=== PATIENT | male | born 1955 | race Caucasian/White ===

== ENCOUNTER 2022-03-17 00:32 | Emergency (ER) | payer MEDICARE, OTHER, SELFPAY ==
--- NOTE | ~2022-03-17 | CT_ITS ---
EXAMINATION: CT abdomen pelvis wo con DATE: 03/17/2022 02:21 INDICATION: Right flank pain. TECHNIQUE: Computed tomography (CT) of the abdomen and pelvis was performed without intravenous contr ast. Automated exposure control and iterative reconstruction technique were employed. The dose-length product was 190.65 mGy-cm. COMPARISON: CT abdomen and pelvis 06/20/2005 FINDINGS: The visualized portions of the lung bases demonstrate mild atelectasis and mild chronic jericho g disease. No pleural effusion. The heart size is normal. No pericardial effusion. There is mild pect us excavatum. The liver and gallbladder are normal. Calcifications in the spleen are consistent with old granulomatous disease. The pancreas and adrenal glands are normal. There are cysts in the kidneys measuring up to 2.8 cm on the left. There is mild right hydronephrosis. There is a 5 mm stone in pro ximal right ureter. There is diverticulosis of the colon without evidence of diverticulitis. There ar e no dilated loops of bowel. The appendix is normal. There is a left inguinal hernia containing fat. There is moderate lumbar spondylosis. There is a benign bone island in L5 vertebral body. IMPRESSION: 1. 5 mm stone in proximal right ureter with mild right hydronephrosis. Reviewed, dictated and finalized at location A.
[2022-03-17 00:33] VITALS: BP 134/70; PULSE 58; RESP 20; TEMP 36.4; O2SAT 98
--- NOTE | 2022-03-17 00:43 | PC.NURSE ---
Pt to ED c/o Right flank pain. Reports hx of kidney stones and feels similar. Rates pain 8/10 to Right flank, radiating around to right abd.
[2022-03-17 01:09] LABS: Basophils Percent Auto 0.3 % (0.2-1.2); Eosinophils Absolute Auto 0.1 K/mm3 (0-0.3); Eosinophils Percent Auto 1.1 % (0-4.4); Hematocrit 40.1 % (42.0-52.0); Hemoglobin 14.1 g/dL (14.0-18.0); Immature Granulocyte Absolute 0.08 K/mm3 (0.00-0.031); Immature Granulocyte Percent A 0.6 % (0-0.5); Lymphocytes Absolute Auto 2.54 K/mm3 (0.9-3.2); Lymphocytes Percent Auto 19.3 % (18.3-44.2); Mean Corpuscular HGB Conc 35.2 g/dl (32-36); Mean Corpuscular Hemoglobin 32.4 pg (26-34); Mean Corpuscular Volume 92.2 fl (80-100); Mean Platelet Volume 8.8 fl (7.4-10.4); Monocytes Percent Auto 7.8 % (2.6-8.5); Neutrophils Absolute Auto 9.3 K/mm3 (1.3-6.7); Neutrophils Percent Auto 70.9 % (45.5-73.1); Platelet Count Result 224 k/mm3 (150-375); Red Blood Count 4.35 M/mm3 (4.6-6.20); Red Cell Distribution Width 11.8 % (11.5-14.5); White Blood Count 13.1 K/mm3 (4.5-10.0)
--- NOTE | 2022-03-17 01:11 | ED.GENADULT ---
HPI - General Adult General Chief complaint: Urogenital-Male Stated complaint: Ride flank pain. hx of kidney stones Time Seen by Provider: 03/17/22 00:36 History of Present Illness HPI narrative: 66-year-old male with history of kidney stones presenting to the emergency department for evaluation of right flank pain that started just after dinner. Patient does have a prior history of stones approximately 9 years ago. Patient's urologist is Dr. Whittington. Patient states he has never been able to pass the stone on his own. Patient denies any chest pain or shortness of breath. Patient did have some nausea but denies any vomiting. Patient also reports history of urinary retention Related Data Allergies Allergy/AdvReac Type Severity Reaction Status Date / Time No Known Allergies Allergy Verified 03/17/22 00:38 Review of Systems Review of Systems: CONSTITUTIONAL: Denies fever, chills, or sweats. EYES: Denies visual changes, redness, or discharge. ENT: Denies rhinorrhea, congestion, sore throat, or otalgia. CARDIOVASCULAR: Denies chest pain, palpitations, or edema. RESPIRATORY: Denies cough or dyspnea. GASTROINTESTINAL: See HPI GENITOURINARY: See HPI SKIN: Denies rash or itching. MUSCULOSKELETAL: Denies back pain, joint pain, or myalgia. NEUROLOGIC: Denies headache, numbness, or weakness. Exam Narrative: APPEARANCE: Patient appears uncomfortable HEAD: normocephalic, atraumatic. EYES: PERRLA/EOMI, conjunctivae clear. NOSE: Normal no drainage NECK: Supple. No adenopathy, no masses. RESPIRATORY: Airway patent, respirations nonlabored. Clear to auscultation bilaterally, no rales, rhonchi, wheezing. CARDIOVASCULAR: Regular rate and rhythm without murmurs rubs or gallops. ABDOMINAL: Soft, nontender, nondistended, normal bowel sounds. Right flank pain but no right CVA tenderness to palpation. No abdominal tenderness to palpation MUSCULOSKELETAL: Moves all extremities. Strength/ROM intact, No edema, No calf tenderness. NEURO: Alert. Cranial nerves II through XII intact. Grossly intact SKIN: Warm, dry. Normal Color Course Course Emergency Course: Patient does have mild leukocytosis of 13.1. Patient is afebrile. Patient's CMP including his creatinine is within normal limits. UA does have blood and does have positive nitrates with some white blood cells. Patient will be treated with antibiotics and urine culture is pending. Patient did have his pain controlled in the emergency department. Patient and are comfortable with the plan for discharge and close follow-up. Patient was educated on the importance of close follow-up with urology and on reasons to return to the emergency department. Patient was provided Zofran for nausea and Hopkins for pain control. Patient does take Flomax already. Vital Signs Vital signs: Vital Signs Temperature 97.6 F 03/17/22 00:33 Pulse Rate 58 L 03/17/22 00:33 Respiratory Rate 20 03/17/22 00:33 Blood Pressure 134/70 03/17/22 00:33 Pulse Oximetry 98 03/17/22 00:33 Oxygen Delivery Room Air 03/17/22 00:33 Temperature 97.6 F 03/17/22 00:33 Pulse Rate 54 L 03/17/22 02:34 Respiratory Rate 12 03/17/22 02:34 Blood Pressure 131/66 03/17/22 02:34 Pulse Oximetry 95 03/17/22 02:34 Oxygen Delivery Room Air 03/17/22 00:33 Medical Decision Making Vital Signs Vital Signs: Vital Signs Temperature 97.6 F 03/17/22 00:33 Pulse Rate 58 L 03/17/22 00:33 Respiratory Rate 20 03/17/22 00:33 Blood Pressure 134/70 03/17/22 00:33 Pulse Oximetry 98 03/17/22 00:33 Oxygen Delivery Room Air 03/17/22 00:33 Temperature 97.6 F 03/17/22 00:33 Pulse Rate 54 L 03/17/22 02:34 Respiratory Rate 12 03/17/22 02:34 Blood Pressure 131/66 03/17/22 02:34 Pulse Oximetry 95 03/17/22 02:34 Oxygen Delivery Room Air 03/17/22 00:33 Lab Data Lab results reviewed: Yes I reviewed the patient's lab results. Result diagrams: 03/17/22 01:03
--- NOTE | 2022-03-17 01:15 | PC.NURSE ---
Pt unable to provide urine sample at this time
[2022-03-17 01:18] LABS: Alanine Aminotransferase 26 U/L (6-50); Alkaline Phosphatase 101 U/L (38-126); Anion Gap 9 mmol/L (8-16); Aspartate Amino Transferase 21 U/L (17-59); Bilirubin,Total 0.4 mg/dL (0.2-1.3); Blood Urea Nitrogen 25 mg/dL (9-20); Calcium 9.4 mg/dL (8.4-10.2); Carbon Dioxide 22 mmol/L (22-30); Chloride 106 mmol/L (98-107); Estimated CRCL calculation 72 ml/min; Estimated Glomerular Filt Rate > 60; Glucose 160 mg/dL (65-110); Sodium 137 mmol/L (137-145)
[2022-03-17] MEDS: HYDROmorphone HCL INJ (*CRX) 1 MG/ML SYR 0.5 MG IV PUSH ×2 (01:20→02:06)
[2022-03-17] MEDS: ONDANSETRON INJ 4 MG/2 ML VIAL IV PUSH (01:20)
[2022-03-17 02:11] LABS: Appearance Urine Clear (Clear); Bilirubin Urine Negative (Negative); Blood Urine 2+ (Negative); Color Urine Yellow (Yellow); Glucose Urine UA Trace mg/dL (Negative); Ketones Urine Negative (Negative); Leukocyte Esterase Ur Negative LEU/UL (Negative); Nitrate Urine Positive (Negative); Protein Urine Trace mg/dL (Negative); Specific Grav Ur >= 1.030 (1.001-1.035); Urobilinogen Urine 0.2 mg/dL (<2.0); pH Urine 5.5 (5.0-9.0)
[2022-03-17 02:20] LABS: Bacteria Urine Trace /hpf; RBC Urine >75 /hpf (0-2)
[2022-03-17 02:23] LABS: Add Urine Microscopic? YES
[2022-03-17 02:34] VITALS: BP 131/66; PULSE 54; RESP 12; O2SAT 95
[2022-03-17] MEDS: KETOROLAC 15 MG/ML VIAL (*BKC) IV PUSH (03:13)
== END 2022-03-17 04:00 | disposition home or self-care (01) ==
PROVIDERS: Emergency Provider Emergency Medicine; PCP Pediatrics
DX: N20.1 Calculus of ureter (principal)
CPT/HCPCS: 36415; 74176; 80053; 81001; 85025; 87086; 87147; 87181; 87186; 96365; 96375; 96376; 99284; J0696; J1170; J1885; J2405

== ENCOUNTER 2022-03-18 09:29 | Outpatient (CLI) | payer MEDICARE, OTHER, SELFPAY ==
--- NOTE | ~2022-03-18 | XR_ITS ---
EXAM: XR abdomen/kub 1V DATE: 03/18/2022 10:08 HISTORY: CALCULUS OF KIDNEY X 3 DAYS AGO . COMPARISON: CT abdomen and pelvis 03/17/2022. FINDINGS: Clear lung bases. Normal bowel gas pattern. No organomegaly. Stable 5 mm right UPJ stone a t the level of L3. Granulomatous splenic calcifications. Degenerative changes in the lumbar spine. IMPRESSION: Stable 5 mm right UPJ stone. Reviewed, dictated and finalized at location K.
== END 2022-03-18 09:30 | disposition home or self-care (01) ==
LOC: ANHIMG 09:37
PROVIDERS: PCP Pediatrics; Visit Provider Urology
DX: N20.0 Calculus of kidney (principal)
CPT/HCPCS: 74018

== ENCOUNTER 2022-03-19 02:40 | Inpatient (IN) | payer MEDICARE, OTHER, SELFPAY ==
[2022-03-19] VITALS (21 sets, daily range): BP systolic 126–174; BP diastolic 65–98; PULSE 54–80; RESP 16–20; TEMP 35.6–36.9; O2SAT 92–99; BMI 27.7
--- NOTE | ~2022-03-19 | XR_ITS ---
EXAMINATION: XR abdomen/kub 1V INDICATION: Renal stone TECHNIQUE: Supine views of the abdomen were obtained on 2 radiographs. COMPARISON: 03/18/2022 FINDINGS: The previously described right ureteropelvic junction stone has migrated slightly distally into the mid ureter and now projects between the right L3 and L4 transverse processes. The bowel gas pattern is normal. 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 IMPRESSION: 1. 5 mm right ureteral stone. Reviewed, dictated and finalized at location B.
[2022-03-19 03:00] LABS: Basophils Percent Auto 0.2 % (0.2-1.2); Eosinophils Absolute Auto 0.1 K/mm3 (0-0.3); Eosinophils Percent Auto 0.7 % (0-4.4); Hemoglobin 13.8 g/dL (14.0-18.0); Immature Granulocyte Absolute 0.09 K/mm3 (0.00-0.031); Immature Granulocyte Percent A 0.8 % (0-0.5); Lymphocytes Absolute Auto 1.93 K/mm3 (0.9-3.2); Lymphocytes Percent Auto 16.4 % (18.3-44.2); Mean Corpuscular HGB Conc 34.5 g/dl (32-36); Mean Corpuscular Hemoglobin 32.1 pg (26-34); Mean Platelet Volume 8.8 fl (7.4-10.4); Monocytes Absolute Auto 0.7 K/mm3 (0.1-0.6); Monocytes Percent Auto 5.9 % (2.6-8.5); Platelet Count Result 233 k/mm3 (150-375); Red Cell Distribution Width 11.9 % (11.5-14.5); White Blood Count 11.8 K/mm3 (4.5-10.0)
[2022-03-19 03:14] LABS: Alanine Aminotransferase 25 U/L (6-50); Albumin Level 4.2 g/dL (3.5-5.1); Alkaline Phosphatase 104 U/L (38-126); Anion Gap 10 mmol/L (8-16); Aspartate Amino Transferase 22 U/L (17-59); Bilirubin,Total 0.5 mg/dL (0.2-1.3); Blood Urea Nitrogen 17 mg/dL (9-20); Calcium 9.1 mg/dL (8.4-10.2); Carbon Dioxide 26 mmol/L (22-30); Chloride 101 mmol/L (98-107); Estimated CRCL calculation 64 ml/min; Estimated Glomerular Filt Rate > 60; Glucose 181 mg/dL (65-110); Potassium 4.6 mmol/L (3.4-5.0); Sodium 137 mmol/L (137-145)
--- NOTE | 2022-03-19 03:47 | ED.ABDPAIN ---
HPI - Abdominal Pain General Chief Complaint: Abdominal Pain Stated Complaint: kidney stone Time Seen by Provider: 03/19/22 03:30 History of Present Illness HPI narrative: This is a 66-year-old male with past medical history of 5 mm kidney stone found 2 days ago who returns to the emergency department with severe abdominal pain. The patient states he was seen 2 days ago given pain medications with improvement and discharged. He followed up with his urologist with plans for lithotripsy tomorrow. The patient then fell with severe (10 out of 10) sharp abdominal pain in the same area as before. He presented to an outside emergency department where he was given IV Dilaudid and other pain medications with initial improvement. He returns to the emergency department with recurrent, 10 out of 10 pain. Related Data Home Medications Medication Instructions Recorded Confirmed atorvastatin 20 mg tablet 20 mg PO QAM 03/19/22 03/19/22 dextroamphetamine-amphetamine 5 mg 5 mg PO DAILY 03/19/22 03/19/22 tablet dextroamphetamine-amphetamine ER 25 mg PO QAM 03/19/22 03/19/22 25 mg 24hr capsule,extend release duloxetine 30 mg capsule,delayed 60 mg PO QAM 03/19/22 03/19/22 release finasteride 5 mg tablet 5 mg PO QAM 03/19/22 03/19/22 metformin 500 mg tablet 250 mg PO BID 03/19/22 03/19/22 tamsulosin 0.4 mg capsule 0.4 mg PO BID 03/19/22 03/19/22 trazodone 100 mg tablet 200 mg PO HS 03/19/22 03/19/22 Allergies Allergy/AdvReac Type Severity Reaction Status Date / Time No Known Allergies Allergy Verified 03/17/22 00:38 Review of Systems Review of Systems: CONSTITUTIONAL: Denies fever, chills, or sweats. EYES: Denies visual changes, redness, or discharge. ENT: Denies rhinorrhea, congestion, sore throat, or otalgia. CARDIOVASCULAR: Denies chest pain, palpitations, or edema. RESPIRATORY: Denies cough or dyspnea. GASTROINTESTINAL: abdominal pain, nausea, denies vomiting, or diarrhea. GENITOURINARY: Denies dysuria or hematuria. SKIN: Denies rash or itching. MUSCULOSKELETAL: Denies back pain, joint pain, or myalgia. NEUROLOGIC: Denies headache, numbness, dizziness, or weakness. PSYCHIATRIC: Denies anxiety or depression. FORMERLY [facility], 1928–1983 Family History Family History (Updated 03/19/22 @ 06:40 by Roro Huber RN) Father Acute myocardial infarction H/O heart bypass surgery Social History Social History Smoking status: Never smoker Alcohol intake: never Substance use: never Spiritual care concerns: No Exam Narrative: GENERAL: Well-developed, well-nourished, in moderate distress due to pain HEAD: Normocephalic, atraumatic. EYES: PERRLA and EOMI. ENT: Nares clear, no rhinorrhea or epistaxis. Mucous membranes moist. Oropharynx without tonsillar hypertrophy exudate or other lesions. NECK: Supple. No adenopathy or masses. No carotid bruits or JVD CHEST: Clear to auscultation. No respiratory distress. No wheezes rales or rhonchi HEART: Regular rate and rhythm. No murmur heard. Normal peripheral pulses. ABDOMEN: Soft, tender palpation greatest in the right lower quadrant without rebound or mass nondistended, normal active bowel sounds. EXTREMITIES: Normal range of motion. No edema. SKIN: Warm, dry, no rash. NEURO: No focal deficits. Alert and oriented x3. PSYCH: Normal mood and affect. Course Course Emergency Course: 05:31 - Discussed patient with urologist, Dr. Wright who agrees the patient failed outpatient management and recommends admission if the patient is excepted to hospitalist versus contacting the day team at 06:00 to discuss possible surgical intervention. 05:43 - Discussed patient with hospitalist, Dr. Burris, who accepts admission. Vital Signs Vital signs: Vital Signs Temperature 96.1 F L 03/19/22 02:42 Pulse Rate 80 03/19/22 02:42 Respiratory Rate 20 03/19/22 02:42 Blood Pressure 174/92 H 03/19/22 02:42 Pulse Oximetry 97 03/19/22 02:4
[2022-03-19] MEDS: MORPHINE SULFATE (*CRX) 4 MG/ML INJ IV PUSH ×2 (03:58→13:01)
[2022-03-19] MEDS: ONDANSETRON INJ 4 MG/2 ML VIAL (04:01)
[2022-03-19] MEDS: SODIUM CHLORIDE 0.9% IV 1,000 ML 999 ML IV CONT (05:22)
[2022-03-19 05:56] LABS: Appearance Urine Clear (Clear); Bilirubin Urine Negative (Negative); Blood Urine 1+ (Negative); Color Urine Yellow (Yellow); Glucose Urine UA Negative (Negative); Ketones Urine 1+ mg/dL (Negative); Leukocyte Esterase Ur Negative LEU/UL (Negative); Nitrate Urine Negative (Negative); Protein Urine Negative (Negative); Specific Grav Ur 1.025 (1.001-1.035); Urobilinogen Urine 0.2 mg/dL (<2.0); pH Urine 5.5 (5.0-9.0)
--- NOTE | 2022-03-19 06:01 | PM.IMHP ---
H&P: HPI History of Present Illness Date/Time: 03/19/22 06:01 Chief Complaint: 66 years old male with past medical history of kidney stone presented to the hospital with flank pain on the right side started on 03/17/2022 evening worsening gradually denies fever or chills no aggravating or relieving factor intermittent but becoming worse for the last 24 hours patient came to the ER on the 12th [address] scan showed 5 mm ureteral stone patient was sent home on antibiotic and pain medication condition did not improve patient came back the urologist was consulted plan to admit the patient for possible lithotripsy also continue IV hydration Review of Systems Review of Systems: Twelve system review was done negative except above Meds Home Medications and Allergies Home Medications Medication Instructions Recorded Confirmed Type cephalexin 250 mg capsule 250 mg PO Q6H 7 days #28 caps 03/17/22 Rx hydrocodone 5 mg-acetaminophen 325 1 tablet PO Q8H PRN pain #14 tabs 03/17/22 Rx mg tablet ondansetron 4 mg disintegrating 4 mg PO Q8H PRN nausea and 03/17/22 Rx tablet vomiting #14 tabs Allergies Allergy/AdvReac Type Severity Reaction Status Date / Time No Known Allergies Allergy Verified 03/17/22 00:38 Vital Signs Vital Signs - 24 hr 03/19/22 02:42 03/19/22 02:54 03/19/22 02:55 Temperature 96.1 F L Pulse Rate 80 Respiratory Rate 20 Blood Pressure 174/92 H 161/84 H Pulse Oximetry 97 99 98 Oxygen Delivery Room Air 03/19/22 03:00 03/19/22 03:01 03/19/22 03:37 Temperature Pulse Rate Respiratory Rate Blood Pressure 151/83 H Pulse Oximetry 96 92 98 Oxygen Delivery 03/19/22 03:45 03/19/22 03:46 03/19/22 04:00 Temperature Pulse Rate Respiratory Rate Blood Pressure 156/81 H Pulse Oximetry 98 96 95 Oxygen Delivery 03/19/22 04:01 03/19/22 04:31 03/19/22 04:32 Temperature Pulse Rate Respiratory Rate Blood Pressure 151/98 H 136/73 Pulse Oximetry 94 92 93 Oxygen Delivery 03/19/22 04:45 03/19/22 04:46 03/19/22 05:01 Temperature Pulse Rate Respiratory Rate Blood Pressure 132/75 126/72 Pulse Oximetry 92 93 92 Oxygen Delivery 03/19/22 05:16 03/19/22 05:46 Temperature Pulse Rate Respiratory Rate Blood Pressure 148/79 H 138/79 Pulse Oximetry Oxygen Delivery Exam Narrative: GENERAL: Well appearing, well-nourished, non-toxic, in no acute distress. HEAD: Normocephalic, atraumatic. NECK: Supple. No adenopathy, no masses. RESPIRATORY: Airway patent, respirations nonlabored. Clear to auscultation bilaterally, no rales, rhonchi, wheezing. CARDIOVASCULAR: Regular rate and rhythm without murmurs, rubs, or gallops. Peripheral pulses 2+ and equal bilaterally. ABDOMINAL: Soft, nontender, nondistended, no hepatosplenomegaly. Normoactive BS. MUSCULOSKELETAL: Moves all extremities. Strength/ROM intact without gross deformities or TTP. No edema. No calf tenderness. No chest wall tenderness palpation. SKIN: Warm, dry, normal color. No rashes. NEURO: A&O X3. PSYCHIATRIC: Appropriate mood and affect. Normal interaction. H&P: Results Labs Labs: Short CBC 03/19/22 Range/Units 02:48 WBC 11.8 H (4.5-10.0) K/mm3 Hgb 13.8 L (14.0-18.0) g/dL Hct 40.0 L (42.0-52.0) % Plt Count 233 (150-375) k/mm3 BMP 03/19/22 02:48 Sodium 137 Potassium 4.6 Chloride 101 Carbon Dioxide 26 BUN 17 Creatinine 0.90 Glucose 181 H Calcium 9.1 Liver Function 03/19/22 Range/Units 02:48 Total Bilirubin 0.5 (0.2-1.3) mg/dL AST 22 (17-59) U/L ALT 25 (6-50) U/L Alkaline Phosphatase 104 (38-126) U/L Albumin 4.2 (3.5-5.1) g/dL Urine 03/19/22 Range/Units 05:13 Urine Color Yellow (Yellow) Urine Appearance Clear (Clear) Urine pH 5.5 (5.0-9.0) Ur Specific [place] 1.025 (1.001-1.035) Urine Protein Negative (Negative) mg/dL Urine Glucose (UA) Negative (Nega
[2022-03-19 06:03] LABS: Mucus Urine Rare /lpf
[2022-03-19 06:11] LABS: Add Urine Microscopic? YES
--- NOTE | 2022-03-19 06:37 | ADMGEN ---
This patient, Jamil Cardenas II, was admitted to Medical Room 340-01. Patient/family oriented to hospital policies and general routines including ID bracelet, bed and alarms, visiting hours, pain management, procedures, bathroom and other care routines, personal items, smoking policy, room service/diet, and visiting hours. Information on how to activate the Rapid Response Team has been discussed. Patient/Family are encouraged to report perceived risks to care and to ask questions if they do not understand what they are told or what they should do.
[2022-03-19] MEDS: SODIUM CHLORIDE 0.9% IV 1,000 ML 100 ML IV CONT ×3 (06:49→23:54)
[2022-03-19] MEDS: MORPHINE SULFATE (*CRX) 2 MG/ML INJ IV PUSH (08:21)
--- NOTE | 2022-03-19 10:38 | PC.NURSE ---
Spoke with urology. Ok to give pt a diet order. Lithotripsy scheduled for tomorrow. Pain control until then. Orders to increase morphine and add IV Tylenol.
--- NOTE | 2022-03-19 12:57 | PC.NURSE ---
Pt experiencing pain at this time. This nurse has spent about 30 minutes educating the patient on his choices for pain control. Pt asking for multiple medications all at once. Education provided on what can/cant be given. I let pt know that the longer he waits to decide on a medication the worse his pain may get. He is not happy with the choices we have. I informed him that we made medication changes per his request this am. Will attempt to contact urology to inform of pt condition.
--- NOTE | 2022-03-19 16:27 | WPDURCON ---
Assessment and Plan Assessment and plan (1) Ureteral stone: Code(s): N20.1 - Calculus of ureter Status: Acute Assessment and Plan: Plan to proceed with RIght ESWL tomorrow with Dr. Whittington. Obtain Consent: Right ESWL Keep NPO after midnight tonight. (2) Intractable abdominal pain: Code(s): R10.9 - Unspecified abdominal pain Status: Acute Assessment and Plan: Continue pain control with IV Ofirmev and Morphine for breakthrough pain. (3) UTI (urinary tract infection): Code(s): N39.0 - Urinary tract infection, site not specified Status: Acute Assessment and Plan: Continue IV Rocephin. Urology Consult Note HPI Date Seen: 03/19/22 Time Seen: 16:28 Requesting Physician: Dora Dobbins DO Primary Care Provider: Kyler Navarro MD Consult Narrative Reason for consult: Right Ureteral Stone Narrative: Jamil Cardenas II is a 66 year old male who presented to the ER today for persistent, worsening, severe pain in the right flank that radiates to the abdomen from his known ureteral stone. He was seen in our office by Dr. Whittington and scheduled for a Right ESWL tomorrow 03/20/22 but couldn't make it at home on oral pain medications. He has a history of stones and has had stents in the past and declines a stent today d/t stent intolerance in the past. He was admitted for pain control until his procedure tomorrow. He is afebrile, but his culture from 03/17/22 grew Coagulase negative Staph and he is currently on IV Rocephin. His WBC is 11.8 and creatinine is 0.9. His pain was not well controlled this morning on Morphine and oral Hydrocodone, therefore he was switched to IV Ofirmev 1000mg q 6 and Morphine was increased to 4mg q 4 PRN for breakthrough pain. He is doing much better this afternoon on this pain regimen. Review of Systems Cardiovascular: Cardiovascular: Denies chest pain Respiratory: Respiratory: Reports no additional respiratory complaints Gastrointestinal: Gastrointestinal: Reports abdominal pain, Denies nausea and Denies vomiting Genitourinary: Genitourinary: Denies hematuria, Denies dysuria, Reports flank pain and Denies urinary frequency [facility] Family History Family History Father Acute myocardial infarction H/O heart bypass surgery Social History Social History Smoking status: Never smoker Alcohol intake: never Substance use: never Spiritual care concerns: No Meds Home Medications and Allergies Home Medications Medication Instructions Recorded Confirmed Type cephalexin 250 mg capsule 250 mg PO Q6H 7 days #28 caps 03/17/22 03/19/22 Rx hydrocodone 5 mg-acetaminophen 325 1 tablet PO Q8H PRN pain #14 tabs 03/17/22 03/19/22 Rx mg tablet ondansetron 4 mg disintegrating 4 mg PO Q8H PRN nausea and 03/17/22 03/19/22 Rx tablet vomiting #14 tabs atorvastatin 20 mg tablet 20 mg PO QA 03/19/22 03/19/22 History dextroamphetamine-amphetamine 5 mg 5 mg PO DAILY 03/19/22 03/19/22 History tablet dextroamphetamine-amphetamine ER 25 mg PO QA 03/19/22 03/19/22 History 25 mg 24hr capsule,extend release duloxetine 30 mg capsule,delayed 60 mg PO QA 03/19/22 03/19/22 History release finasteride 5 mg tablet 5 mg PO QA 03/19/22 03/19/22 History metformin 500 mg tablet 250 mg PO BID 03/19/22 03/19/22 History tamsulosin 0.4 mg capsule 0.4 mg PO BID 03/19/22 03/19/22 History trazodone 100 mg tablet 200 mg PO HS 03/19/22 03/19/22 History Allergies Allergy/AdvReac Type Severity Reaction Status Date / Time No Known Allergies Allergy Verified 03/17/22 00:38 Vital Signs Vital Signs - 24 hr 03/19/22 02:42 03/19/22 02:54 03/19/22 02:55 Temperature 96.1 F L Pulse Rate 80 Respiratory Rate 20 Blood Pressure 174/92 H 161/84 H Pulse Oximetry 97 99 98 Oxygen Delivery Room Air 03/19/22 03:00 03/19/22 03:01
--- NOTE | 2022-03-19 17:45 | PC.NURSE ---
This nurse went into patients room to see if he would like a pain pill for his low to moderate pain level. I explained that if we keep on top of his pain he should not need the morphine as much and that we are trying to keep him from being a 9-10/10 like he was this morning. Patient begins to ask for morphine. I informed him that that medication was for higher levels pain and not for the lower levels. Patient stated fine then Im a 9 on the pain scale I let him know that I would be uncomfortable giving him morphine when he just told me that his pain was only a 3 at this time. He then wanted to know if I could give him a norco and the IV tylenol together. I reinforced the danger of mixing medications. This nurse spent quite some time in the patients room educating on the choices for pain control he had for each level of pain and why I could not give multiple medications at once. Also spoke at length with urology PA about his medication interactions.
[2022-03-19] MEDS: traZODone HCL 50 MG TABLET 200 MG PO (22:41)
[2022-03-20] VITALS (12 sets, daily range): BP systolic 112–164; BP diastolic 52–84; PULSE 49–88; RESP 14–20; TEMP 36.1–36.4; O2SAT 93–100
[2022-03-20 05:50] LABS: Alanine Aminotransferase 18 U/L (6-50); Albumin Level 3.2 g/dL (3.5-5.1); Alkaline Phosphatase 73 U/L (38-126); Anion Gap 6 mmol/L (8-16); Aspartate Amino Transferase 16 U/L (17-59); Bilirubin,Total 0.2 mg/dL (0.2-1.3); Blood Urea Nitrogen 14 mg/dL (9-20); Calcium 8.7 mg/dL (8.4-10.2); Carbon Dioxide 26 mmol/L (22-30); Chloride 104 mmol/L (98-107); Estimated CRCL calculation 72 ml/min; Estimated Glomerular Filt Rate > 60; Glucose 129 mg/dL (65-110); Potassium 3.8 mmol/L (3.4-5.0); Sodium 136 mmol/L (137-145)
[2022-03-20 05:52] LABS: Basophils Percent Auto 0.3 % (0.2-1.2); Eosinophils Absolute Auto 0.1 K/mm3 (0-0.3); Eosinophils Percent Auto 1.5 % (0-4.4); Hematocrit 35.2 % (42.0-52.0); Immature Granulocyte Absolute 0.04 K/mm3 (0.00-0.031); Immature Granulocyte Percent A 0.6 % (0-0.5); Lymphocytes Absolute Auto 1.89 K/mm3 (0.9-3.2); Lymphocytes Percent Auto 26.4 % (18.3-44.2); Mean Corpuscular HGB Conc 34.1 g/dl (32-36); Mean Corpuscular Hemoglobin 32.2 pg (26-34); Mean Corpuscular Volume 94.4 fl (80-100); Mean Platelet Volume 9.2 fl (7.4-10.4); Monocytes Absolute Auto 0.5 K/mm3 (0.1-0.6); Monocytes Percent Auto 6.4 % (2.6-8.5); Neutrophils Absolute Auto 4.6 K/mm3 (1.3-6.7); Neutrophils Percent Auto 64.8 % (45.5-73.1); Platelet Count Result 203 k/mm3 (150-375); Red Blood Count 3.73 M/mm3 (4.6-6.20); Red Cell Distribution Width 11.9 % (11.5-14.5); White Blood Count 7.2 K/mm3 (4.5-10.0)
--- NOTE | 2022-03-20 07:04 | HP_ITS ---
This report was moved to the correct visit on 03/25/22. Original report was signed by Zain Whittington MD on 03/20/22703. ADDENDUM Repeat KUB: stone persists in right mid-ureter. Will continue to plan right ESWL. Addendum Documented By: Zain Whittington MD 03/20/22 1148 Addendum Signed By: <Electronically signed by Zain Whittington MD>03/20 1148 History and Physical Update Update Date/Time: 03/20/22 07:04 History and Physical has been reviewed, including an updated exam of the patient. There are NO changes in the patient's condition. Risks, benefits, and alternatives have been discussed and questions answered. Patient agrees to proceed with procedure. This dictation may have been done utilizing a voice recognition system. Attempts have been made to correct errors. However, there may be uncorrected grammatical, spelling, and recognition errors present. Report Initialized date/time: Zain Whittington MD 03/20/22703 Electronically signed by: Zain Whittington MD 03/20/22703 [facility]
[2022-03-20 09:16] LABS: Partial Thromboplastin Time 29.2 SECONDS (22.3-36.8)
--- NOTE | 2022-03-20 09:24 | PM.IMPN ---
Progress Note: A&P Assessment and Plan (1) UTI (urinary tract infection): Code(s): N39.0 - Urinary tract infection, site not specified Status: Acute Assessment and Plan: Continue Rocephin, follow up urine cultures (2) Ureteral stone: Code(s): N20.1 - Calculus of ureter Status: Acute Assessment and Plan: Appreciate urological consultation, right ESWL pending for today with Dr. Whittington Plan No past medical history noted on H&P Check A1c, lipid panel, TSH as patient is on metformin and Lipitor DVT prophylaxis with SCDs GI prophylaxis not indicated Code status full code Subjective Date/time seen: 03/20/22 09:24 Exam Narrative: patient not in room all day Objective Data Vital Signs Vital Signs: Vital Signs - 24 hr 03/19/22 14:00 03/19/22 20:57 03/20/22 04:42 Temperature 97.7 F 97.8 F 97.5 F L Pulse Rate 54 L 69 88 Respiratory Rate 16 16 18 Blood Pressure 139/65 128/72 120/52 L Pulse Oximetry 96 97 98 Intake/Output Intake/Output: Intake & Output 03/17/22 03/18/22 03/19/22 03/20/22 23:59 23:59 23:59 23:59 Intake Total 3610 250 Output Total 1700 2000 Balance 1910 -1750 Meds/Results Medications: Active Medications Generic Name Dose Route Start Last Admin Trade Name Freq PRN Reason Stop Dose Admin Acetaminophen 650 mg 03/19/22 05:58 Acetaminophen 325 Mg Tablet PO Q4H PRN Mild Pain (1-3) or Fever Hydrocodone Bitart/Acetaminophen 1 tab 03/19/22 05:57 Hydrocodone/Acetaminophen (*Crx) 5-325 Mg Tablet PO Q4H PRN Abdominal Cramping Hydrocodone Bitart/Acetaminophen 1 tab 03/20/22 09:23 Hydrocodone/Acetaminophen (*Crx) 5-325 Mg Tablet PO Q8H PRN pain Atorvastatin Calcium 20 mg 03/21/22 09:00 Atorvastatin 20 Mg Tablet PO [place] BANEGAS Bisacodyl 5 mg 03/19/22 05:58 Bisacodyl 5 Mg Tablet Ec PO DAILY PRN Constipation Duloxetine HCl 60 mg 03/21/22 09:00 Duloxetine Hcl 30 Mg Capsule.Dr GENEVIEVE BANEGAS Finasteride 5 mg 03/21/22 09:00 Finasteride 5 Mg Tablet PO QAM MAKENZIE Sodium Chloride 1,000 mls @ 100 mls/hr 03/19/22 06:00 03/19/22 23:54 Normal Saline Iv IV CONT 100 mls/hr .Q10H MAKNEZIE Administration Ceftriaxone Sodium/Dextrose 1 gm in 50 mls @ 100 mls/hr 03/19/22 06:00 03/20/22 05:47 Rocephin 1 Gm/D5w 50 Ml IVPB 03/22/22 05:59 Infused Q24H MAKENZIE Infusion Acetaminophen 1,000 mg in 100 mls @ 400 mls/hr 03/19/22 10:06 03/20/22 06:41 Ofirmev 1,000 Mg Ivpb IVPB 03/20/22 10:05 Infused Q6H PRN Infusion Pain Rated 4-6 Morphine Sulfate 4 mg 03/19/22 10:06 03/19/22 13:01 Morphine Sulfate (*Crx) 4 Mg/Ml Inj IV PUSH 4 mg Q4H PRN Administration For pain 7-10 Naloxone HCl 0.1 mg 03/19/22 05:58 Naloxone Hcl 0.4 Mg/Ml Vial IV PUSH Q2M PRN Opiate Reversal Non-Formulary Medication 25 mg 03/21/22 09:00 Dextroamphetamine-Amphetamine PO 04/20/22 08:59 QAM COUNT INCLUDES THE [facility] Ondansetron HCl 4 mg 03/20/22 09:23 Ondansetron Hcl Odt 4 Mg Tablet PO Q8H PRN nausea and vomiting Tamsulosin HCl 0.4 mg 03/20/22 17:00 Tamsulosin Hcl 0.4 Mg Capsule PO BID COUNT INCLUDES THE [facility] Trazodone HCl 200 mg 03/19/22 21:42 03/19/22 22:41 Trazodone Hcl 50 Mg Tablet PO 200 mg HS PRN Administration Insomnia Labs Labs: Laboratory Results - last 24 hr 03/20/22 03/20/22 03/20/22 05:14 05:14 08:59 WBC 7.2 RBC 3.73 L Hgb 12.0 L Hct 35.2 L MCV 94.4 MCH 32.2 MCHC 34.1 RDW 11.9 Plt Count 203 MPV 9.2 Immature Gran % (Auto) 0.6 H Neut % (Auto) 64.8 Lymph % (Auto) 26.4 [place] % (Auto) 6.4 Eos % (Auto) 1.5 Baso % (Auto) 0.3 Lymph # (Auto) 1.89 [place] # (Auto) 0.5 Eos # (Auto) 0.1 Baso # (Auto) 0.0 Abs Immat Gran (auto) 0.04 H Absolute Neuts (auto) 4.6 Absolute Nucleated RBC 0.0 Nucleated RBC % 0.0 PT 13.0 INR 1.0 APTT 29.2 [place]
[2022-03-20 10:17] LABS: Hemoglobin A1C 5.8 % (<5.7)
--- NOTE | 2022-03-20 10:17 | WPDANESEPPF ---
Anes - Initial Pre Proc Eval Procedure: Operation Date: 03/20/22 12:30 Proposed Procedures p Right Extracorporeal Shock Wave Lithotripsy - Zain Whittington MD Date/Time: 03/20/22 10:17 Surgeon: Dora Dobbins DO Pre Op Diagnosis: NEPHROLITHIASIS Patient Data Age: 66 Gender: M Height: 1.7 m Weight: 80.3 kg Last Vital Signs Temp 36.4 C L 03/20/22 04:42 Pulse 88 03/20/22 04:42 Resp 18 03/20/22 04:42 BP 120/52 L 03/20/22 04:42 Pulse Ox 98 03/20/22 04:42 O2 Del Method Room Air 03/19/22 08:00 Allergies Allergy/AdvReac Type Severity Reaction Status Date / Time No Known Allergies Allergy Verified 03/17/22 00:38 Home Medications Medication Instructions Recorded Confirmed Type cephalexin 250 mg capsule 250 mg PO Q6H 7 days #28 caps 03/17/22 03/19/22 Rx hydrocodone 5 mg-acetaminophen 325 1 tablet PO Q8H PRN pain #14 tabs 03/17/22 03/19/22 Rx mg tablet ondansetron 4 mg disintegrating 4 mg PO Q8H PRN nausea and 03/17/22 03/19/22 Rx tablet vomiting #14 tabs atorvastatin 20 mg tablet 20 mg PO QAM 03/19/22 03/19/22 History dextroamphetamine-amphetamine 5 mg 5 mg PO DAILY 03/19/22 03/19/22 History tablet dextroamphetamine-amphetamine ER 25 mg PO QAM 03/19/22 03/19/22 History 25 mg 24hr capsule,extend release duloxetine 30 mg capsule,delayed 60 mg PO QAM 03/19/22 03/19/22 History release finasteride 5 mg tablet 5 mg PO QAM 03/19/22 03/19/22 History metformin 500 mg tablet 250 mg PO BID 03/19/22 03/19/22 History tamsulosin 0.4 mg capsule 0.4 mg PO BID 03/19/22 03/19/22 History trazodone 100 mg tablet 200 mg PO HS 03/19/22 03/19/22 History Laboratory Tests 03/20/22 03/20/22 03/20/22 05:14 05:14 05:14 WBC 7.2 K/mm3 K/mm3 (4.5-10.0) RBC 3.73 M/mm3 L M/mm3 (4.6-6.20) Hgb 12.0 g/dL L g/dL (14.0-18.0) Hct 35.2 % L % (42.0-52.0) MCV 94.4 fl fl (80-100) MCH 32.2 pg pg (26-34) MCHC 34.1 g/dl g/dl (32-36) RDW 11.9 % % (11.5-14.5) Plt Count 203 k/mm3 k/mm3 (150-375) MPV 9.2 fl fl (7.4-10.4) Immature Gran % (Auto) 0.6 % H % (0-0.5) Neut % (Auto) 64.8 % % (45.5-73.1) Lymph % (Auto) 26.4 % % (18.3-44.2) [place] % (Auto) 6.4 % % (2.6-8.5) Eos % (Auto) 1.5 % % (0-4.4) Baso % (Auto) 0.3 % % (0.2-1.2) Lymph # (Auto) 1.89 K/mm3 K/mm3 (0.9-3.2) [place] # (Auto) 0.5 K/mm3 K/mm3 (0.1-0.6) Eos # (Auto) 0.1 K/mm3 K/mm3 (0-0.3) Baso # (Auto) 0.0 K/mm3 K/mm3 (0.0-0.1) Abs Immat Gran (auto) 0.04 K/mm3 H K/mm3 (0.00-0.031) Absolute Neuts (auto) 4.6 K/mm3 K/mm3 (1.3-6.7) Absolute Nucleated RBC 0.0 K/mm3 K/mm3 (0.0-0.012) Nucleated RBC % 0.0 % % (0.0-0.2) PT INR APTT Sodium 136 mmol/L L mmol/L (137-145) Potassium 3.8 mmol/L mmol/L (3.4-5.0) Chloride 104 mmol/L mmol/L (98-107) Carbon Dioxide 26 mmol/L mmol/L (22-30) Anion Gap 6 mmol/L L mmol/L (8-16) BUN 14 mg/dL mg/dL (9-20) Creatinine 0.80 mg/dL mg/dL (0.7-1.3) Estim Creat Clear Calc 72 ml/min ml/min Estimated GFR > 60 (59 - ) Glucose 129 mg/dL H mg/dL (65-110) Hemoglobin A1c Pending Calcium 8.7 mg/dL mg/dL (8.4-10.2) Total Bilirubin 0.2 mg/dL mg/dL (0.2-1.3) AST 16 U/L L U/L (17-59) ALT 18 U/L U/L (6-50) Alkaline Phosphatase 73 U/L U/L (38-126) Total Protein 6.0 g/dL L g/dL (6.3-8.2) Albumin 3.2 g/dL L g/dL (3.5-5.1) Triglycerides Cholesterol LDL Cholesterol Direct HDL Direct TSH 03/20/22 03/20/22 03/20/22 05:14 05:14 08:59 WBC RBC
[2022-03-20] MEDS: LACTATED RINGERS 1,000 ML 30 ML IV CONT (10:50)
[2022-03-20 11:04] LABS: Cholesterol 108 mg/dL (0-200); HDL Direct 36 mg/dL; Triglycerides 98 mg/dL (<150)
[2022-03-20 11:15] LABS: LDL Cholesterol Direct 53 mg/dL
--- NOTE | 2022-03-20 12:22 | W.PM.PROC2 ---
Procedure Note - Detailed Date of Procedure 03/20/22 Pre-op Diagnosis Right ureteral stone Post-op Diagnosis Same Procedure Performed Right ESWL Surgeon Zain Whittington MD Description of Procedure The patient was brought to the operative suite where he was placed in the supine position on the [facility] lithotripsy table. The focal point of the lithotripter was placed at a 5-6mm right mid-ureteal calculus. A total of 3000 shocks were delivered at a power setting of 4. There appeared to be good fragmentation of the stone. The patient tolerated the procedure well and was taken to the recovery room in good condition. Urine Output 825 Drains No Packing No Pathology None sent Complications No immediate complications
--- NOTE | 2022-03-20 13:18 | SUR.PHASEI ---
1315: Simple mask removed.
[2022-03-20] MEDS: fentaNYL CITRATE INJ (*CRX) 100 MCG/2 ML VIAL 25 MCG IV PUSH ×5 (13:35→14:35)
--- NOTE | 2022-03-20 13:48 | SUR.PHASEI ---
Patient told RN in recovery that she didn't need to call an update [facility].
[2022-03-20] MEDS: DULoxetine HCL 60 MG CAPSULE.DR PO (15:05)
[2022-03-20] MEDS: ATORVASTATIN 20 MG TABLET PO (15:05)
--- NOTE | 2022-03-25 13:46 | P.DS_ITS ---
DS: Admitting Diagnosis Discharge Date 03/20/22 Admitting Diagnosis Right ureteral stone DS: Summary Hospital Course Hospital Course: Patient had recently been the diagnosed with a 5 mm obstructing right proximal ureteral calculus and arrangements had been made for outpatient lithotripsy. In the interval he developed intractable right flank pain prompting admission for hydration and analgesics. We proceeded with plans for lithotripsy. Thereafter he was comfortable and tolerating a diet. He was discharged on the evening of the procedure. Time Spent with Patient Time attestation: Total time spent providing and/or coordinating discharge services: Exam Const: General: no acute distress Resp: Effort & Inspection: normal respiratory effort GI: Inspection: non-distended GI Palp: No abdominal tenderness and No Guarding due to palpation present (GI) Auscultation: normal bowel sounds Discharge Plan Discharge Attending physician on discharge: Dora Dobbins Consulting providers: Jere Wright ; Luzma Scott ; Kevin Torrez ; Dora Dobbins Discharging Clinician: Zain Whittington Patient Disposition: Home, Self-Care Activity: other - see discharge instructions Diet: other - see discharge instructions Discharge Instructions: 1) Activity: * No driving or important decisions [id number]. * No lifting/straining >15lbs. [id number]. 2) Strain urine until one stone fragment retrieved. Bring that fragment to your follow-up visit. 3) Diet: resume normal pre-admission diet. 4) Follow-up: 2-3 weeks with [facility] / call for appointment ([phone]) Patient Instructions: Antibiotic Form Stand Alone Forms: General Discharge Information Follow-up/Referrals: Zain Whittington MD [Physician] - Discharge Medications: New hydrocodone-acetaminophen 5-325 mg tablet 1 - 2 tablet PO Q6H PRN (Reason: pain) Qty: 20 0RF cephalexin 500 mg capsule 500 mg PO Q8H Qty: 9 0RF Continued metformin 500 mg tablet 250 mg PO BID atorvastatin 20 mg tablet 20 mg PO QAM tamsulosin 0.4 mg capsule 0.4 mg PO BID Rx Instructions: x1 in morning, 1 at noon trazodone 100 mg tablet 200 mg PO HS finasteride 5 mg tablet 5 mg PO QAM dextroamphetamine-amphetamine 5 mg tablet 5 mg PO DAILY Rx Instructions: pt takes 3-4 days a week PRN dextroamphetamine-amphetamine 25 mg capsule,extended release 24hr 25 mg PO QAM duloxetine 30 mg capsule,delayed release(DR/EC) 60 mg PO QAM cephalexin 250 mg capsule 250 mg PO Q6H 7 Days Qty: 28 0RF Rx Instructions: Pt took 2-3 tabs total hydrocodone-acetaminophen 5-325 mg tablet 1 tablet PO Q8H PRN (Reason: pain) Qty: 14 0RF Rx Instructions: for kidney stone ondansetron 4 mg tablet,disintegrating 4 mg PO Q8H PRN (Reason: nausea and vomiting) Qty: 14 0RF Rx Instructions: for kidney stone Other Ambulatory Orders: XR abdomen/kub 1V (Routine) Timeframe: 2 Weeks Location: Determined by Patient Ordered By: Zain Whittington Date of admission: 03/19/22 16:58 Primary Care Provider: Kyler Navarro Admitting Provider: Jamin Burris M.A. Attending physician on admission: Zain Whittington Condition: Serious
== END 2022-03-20 16:30 | disposition home or self-care (01) | DRG 694 ==
LOC: ANHED 03:53 → ANH3MED 05:59
PROVIDERS: Student in an Organized Health Care Education/Training Program; Admitting Provider Internal Medicine; Emergency Provider Preventive Medicine Aerospace Medicine; PCP Pediatrics; Visit Provider Urology
PROC: 0TF6XZZ Fragmentation in Right Ureter, External Approach (ICD-10-PCS; CPT 50590; principal; 2022-03-20 12:30)
DX: N20.1 Calculus of ureter (principal); N39.0 Urinary tract infection, site not specified; E86.0 Dehydration; E78.5 Hyperlipidemia, unspecified; B95.7 Other staphylococcus as the cause of diseases classified elsewhere; Z87.442 Personal history of urinary calculi; Z79.899 Other long term (current) drug therapy
CPT/HCPCS: 36415; 74018; 74176; 80053; 80061; 81001; 83036; 84443; 85025; 85610; 85730; 87086; 87147; 87181; 87186; 96361; 96365; 96367; 96375; 96376; 99284; 99285; A9270; G0378; J0131; J0696; J1170; J1885; J2270; J2405; J2704; J3010; J7030; J7120